=== PATIENT | female | born 2000 | race American Indian/Alaskan Native ===

== ENCOUNTER 2019-03-08 04:29 | Emergency (ER) | payer BC ==
--- NOTE | 2019-03-08 05:06 | XRay Report ---
CHEST 1 VIEW INDICATION / CLINICAL INFORMATION: Chest Pain. COMPARISON: None available. FINDINGS: SUPPORT DEVICES: None. HEART / MEDIASTINUM: No significant abnormality. LUNGS / PLEURA: No significant pulmonary or pleural abnormality. No pneumothorax. ADDITIONAL FINDINGS: No significant additional findings. IMPRESSION: 1. No acute findings. Signer Name: Rony Mejia MD Signed: 03/08/2019 5:01 AM Workstation Name: [id number]
--- NOTE | 2019-03-08 06:06 | Emergency Department Report ---
ED General Adult HPI - General Chief complaint: Chest Pain Stated complaint: CHEST PAIN Source: patient Mode of arrival: Ambulatory Limitations: No Limitations - History of Present Illness Initial comments: Patient is a nulliparous 18-year-old female with a history of asthma who presents to the ED with complaint of acute acute onset persistent intermittent chest tightness with wheezing and shortness of breath for the last 1 week, worse in the last 2 days. Patient states that she does not have any in Albuterol inhaler or nebulizer at home. Patient denies dizziness, chest pain, abdominal pain, nausea, vomiting, sore throat, nasal and sinus congestion, fever, chills, traumatic injury or heavy lifting. Patient also states that she is not on any control. Patient does not smoke or drink alcohol. MD Complaint: CHEST TIGHTNESS; WHEEZING, DYSPNEA -: Sudden, week(s) (1) Location: chest Radiation: non-radiation Severity scale (0 -10): 2 Quality: dull Consistency: intermittent Improves with: none Worsens with: none Associated Symptoms: denies other symptoms, cough, shortness of breath. denies: confusion, chest pain, diaphoresis, fever/chills, headaches, malaise, nausea/vomiting, rash, seizure, syncope, weakness Treatments Prior to Arrival: none - Related Data Home Medications Medication Instructions Recorded Confirmed Last Taken Claritin 10 mg PO DAILY 07/16/14 07/16/14 Unknown Previous Rx's Medication Instructions Recorded Last Taken Type Albuterol Sulfate [Proventil HFA] 1 - 2 puff IH Q4H PRN #2 hfa.aer.ad 07/17/14 Unknown Rx Desloratadine [Clarinex] 5 mg PO DAILY #30 tablet 07/17/14 Unknown Rx Naproxen [Naprosyn] 500 mg PO BID #20 tablet 01/08/16 Unknown Rx ALBUTEROL Inhaler (OR & NICU) 1 puff IH Q6H PRN #1 inh 03/08/19 Unknown Rx [ProAir HFA Inhaler] methylPREDNISolone [Medrol 4MG 4 mg PO DAILY #21 tab.ds.pk 03/08/19 Unknown Rx DOSEPAK (21 tabs)] Allergies Allergy/AdvReac Type Severity Reaction Status Date / Time No Known Allergies Allergy Unverified 07/16/14 22:27 ED Review of Systems ROS: Stated complaint: CHEST PAIN Other details as noted in HPI Constitutional: denies: chills, fever Eyes: denies: eye pain, eye discharge, vision change ENT: denies: ear pain, throat pain, congestion Respiratory: cough, shortness of breath, wheezing Cardiovascular: denies: chest pain, palpitations Endocrine: no symptoms reported Gastrointestinal: denies: abdominal pain, nausea, diarrhea Genitourinary: denies: urgency, dysuria, discharge Musculoskeletal: denies: back pain, joint swelling, arthralgia Skin: denies: rash, lesions Neurological: denies: headache, weakness, paresthesias Psychiatric: denies: anxiety, depression Hematological/Lymphatic: denies: easy bleeding, easy bruising ED Past Medical Hx - Past Medical History Previous Medical History?: No Hx Asthma: No - Surgical History Past Surgical History?: No - Social History Smoking Status: Never Smoker Substance Use Type: None - Medications Home Medications: Home Medications Medication Instructions Recorded Confirmed Last Taken Type Claritin 10 mg PO DAILY 07/16/14 07/16/14 Unknown History Albuterol Sulfate [Proventil HFA] 1 - 2 puff IH Q4H PRN #2 hfa.aer.ad 07/17/14 Unknown Rx Desloratadine [Clarinex] 5 mg PO DAILY #30 tablet 07/17/14 Unknown Rx Naproxen [Naprosyn] 500 mg PO BID #20 tablet 01/08/16 Unknown Rx ALBUTEROL Inhaler (OR & NICU) 1 puff IH Q6H PRN #1 inh 03/08/19 Unknown Rx [ProAir HFA Inhaler] methylPREDNISolone [Medrol 4MG 4 mg PO DAILY #21 tab.ds.pk 03/08/19 Unknown Rx DOSEPAK (21 tabs)] ED Physical Exam - General Limitations: No Limitations General appearance: alert, in no apparent distress - Head Head exam: Present: atraumatic, normocephalic, normal inspection - Eye Eye exam: Present: normal appearance, PERRL, EOMI Pupils: Present: normal accommodation - ENT ENT exam: Present: normal exam, normal orophraynx, mucous membranes moist, TM's normal bilaterally, normal external ear exam - Neck Neck exam: Present: normal inspection, full ROM - Respiratory Respiratory exam: Present: normal lung sounds bilaterally. Absent: respiratory distress, wheezes, rales, rhonchi, stridor, chest wall tenderness, accessory muscle use, decreased breath sounds, prolonged expiratory - Cardiovascular Cardiovascular Exam: Present: regular rate, normal rhythm, normal heart sounds. Absent: systolic murmur, diastolic murmur, rubs, gallop - GI/Abdominal GI/Abdominal exam: Present: soft, normal bowel sounds. Absent: tenderness, guarding, rebound, hyperactive bowel sounds, hypoactive bowel sounds, organomegaly - Extremities Exam Extremities exam: Present: normal inspection, full ROM, normal capillary refill - Back Exam Back exam: Present: normal inspection, full ROM - Neurological Exam Neurological exam: Present: alert, oriented X3, CN II-XII intact, normal gait, reflexes normal - Psychiatric Psychiatric exam: Present: normal affect, normal mood - Skin Skin exam: Present: warm, dry, intact, normal color. Absent: rash ED Course Vital Signs 03/08/19 04:33 Temperature 97.7 F Pulse Rate 95 H Respiratory 12 Rate Blood Pressure 113/80 O2 Sat by Pulse 100 Oximetry ED Medical Decision Making - Radiology Data Radiology results: report reviewed, image reviewed Chest x-ray shows no acute cardiopulmonary abnormalities or pneumonitis. - Medical Decision Making This is a 18-year-old female with a history of asthma and does not use any bronchodilators at home presented to the ED with chest tightness, dry cough, wheezing and shortness of breath for 1 week intermittently. In the ED, patient is alert and oriented 3 and is not in distress. The vital signs are stable with oxygen saturation of 100% in room air. Physical examination is unremarkable with no wheezing or adventitious lung sounds. Chest x-ray shows no acute cardiopulmonary abnormalities or pneumonitis. Patient has no risk factors for cardiac disease or PE. Patient was discharged home on medications including steroid Dosepak and albuterol inhaler and was advised to follow-up with her primary care physician in 5-7 days for reevaluation or return to the ED immediately if symptoms get worse. - Differential Diagnosis asthma; bronchitis; pneumonia; URI; Critical care attestation.: If time is entered above; I have spent that time in minutes in the direct care of this critically ill patient, excluding procedure time. ED Disposition Clinical Impression: Shortness of breath Asthmatic bronchitis Qualifiers: Asthma severity: mild Asthma persistence: intermittent Asthma complication type: uncomplicated Qualified Code(s): J45.20 - Mild intermittent asthma, uncomplicated Disposition: DC-01 TO HOME OR SELFCARE Is pt being admited?: No Does the pt Need Aspirin: No Condition: Stable Instructions: Acute Bronchitis (ED), Asthma (ED) Additional Instructions: Take medications as advised, follow-up with your primary care physician in 5-7 days for reevaluation. Return to the ED immediately if symptoms get worse. Prescriptions: methylPREDNISolone [Medrol 4MG DOSEPAK (21 tabs)] 4 mg PO DAILY #21 tab.ds.pk ALBUTEROL Inhaler (OR & NICU) [ProAir HFA Inhaler] 1 puff IH Q6H PRN #1 inh PRN Reason: Dyspnea Referrals: PRIMARY CARE, [Primary Care Provider] - 3-5 Days Forms: Work/School Release Form(ED) Time of Disposition: 06:09 Print Language: YI
[2019-03-08 06:44] VITALS: BP 101/66
== END 2019-03-08 06:00 | disposition home or self-care (01) ==
LOC: ED 04:29
DX: J45.909 Unspecified asthma, uncomplicated (principal); Z79.899 Other long term (current) drug therapy
CPT/HCPCS: 71045; 93005; 93010; 99283

== ENCOUNTER 2021-08-08 17:52 | Emergency (ER) | payer SELFPAY ==
[2021-08-08] MEDS ORDERED: predniSONE 50 MG TAB PO ONE (20:55)
[2021-08-08] MEDS ORDERED: ACETAMINOPHEN 325 MG TAB PO ONE (20:55)
--- NOTE | 2021-08-08 21:28 | XRay Report ---
CHEST 2 VIEWS INDICATION / CLINICAL INFORMATION: cough. COMPARISON: None available. FINDINGS: SUPPORT DEVICES: None. HEART / MEDIASTINUM: No significant abnormality. LUNGS / PLEURA: No significant pulmonary or pleural abnormality. No pneumothorax. ADDITIONAL FINDINGS: Mild scoliosis IMPRESSION: 1. No acute findings. Signer Name: Jeancarlos Cantrell MD Signed: 08/08/2021 9:23 PM Workstation Name: [id number]
--- NOTE | 2021-08-08 21:39 | Emergency Department Report ---
- General Chief Complaint: Upper Respiratory Infection Stated Complaint: SOB/BODY ACHES Source: patient Mode of arrival: Ambulatory Limitations: No Limitations - History of Present Illness Initial Comments: Patient is a nulliparous 21-year-old -[place] female with no past medical history who presents to the ED with complaint of acute onset persistent nasal and sinus congestion, frontal sinus pressure, sore throat, diffuse body aches and pains and persistent dry cough for the last 3 days, worse in the last 24 hours. Patient states that she has been taking [id number] medications with no relief. Patient denies dizziness, syncope, fever, nausea and vomiting or diarrhea, chills, chest pain and shortness of breath, abdominal pain, dysuria, urinary frequency and urgency or change in vision. MD Complaint: cough, rhinorrhea, nasal congestion, sinus pain, other (Diffuse body aches and pains) -: Sudden, days(s) (3) Severity: moderate Severity scale (0 -10): 6 Quality: aching Consistency: constant Improves With: nothing Worsens With: nothing Context: sick contacts Associated Symptoms: denies other symptoms, rhinorrhea, nasal congestion, sore throat, cough. denies: fever, chills, myalgias, diaphoresis, headache, stiff neck, chest pain, shortness of breath, abdominal pain, nausea, vomiting, diarrhea, dysuria, rash, confusion, right sweats, weight loss, epistaxis, hoarseness, other Treatments Prior to Arrival: "cold medicine" - Related Data Home Medications Medication Instructions Recorded Confirmed Last Taken Claritin 10 mg PO DAILY 07/16/14 07/16/14 Unknown Previous Rx's Medication Instructions Recorded Last Taken Type Albuterol Sulfate [Proventil HFA] 1 - 2 puff IH Q4H PRN #2 hfa.aer.ad 07/17/14 Unknown Rx Desloratadine [Clarinex] 5 mg PO DAILY #30 tablet 07/17/14 Unknown Rx Naproxen [Naprosyn] 500 mg PO BID #20 tablet 01/08/16 Unknown Rx Albuterol Mdi (or & Nicu Only) 1 puff IH Q6H PRN #1 inh 03/08/19 Unknown Rx [ProAir HFA Inhaler] methylPREDNISolone [Medrol 4MG 4 mg PO DAILY #21 tab.ds.pk 03/08/19 Unknown Rx DOSEPAK (21 tabs)] Naproxen 500 mg PO Q12H PRN #24 tablet 11/10/19 Unknown Rx Azithromycin [Zithromax Z-LUX] 250 mg PO DAILY #6 tab 08/08/21 Unknown Rx Benzonatate [Tessalon Perles] 100 mg PO Q8HR #21 cap 08/08/21 Unknown Rx Cetirizine HCl [Zyrtec 10mg tab] 10 mg PO DAILY #30 tab 08/08/21 Unknown Rx Ibuprofen [Motrin] 600 mg PO Q8H PRN #30 tablet 08/08/21 Unknown Rx predniSONE [Deltasone] 40 mg PO QDAY #10 tab 08/08/21 Unknown Rx Allergies Allergy/AdvReac Type Severity Reaction Status Date / Time No Known Allergies Allergy Unverified 07/16/14 22:27 ED Review of Systems ROS: Stated complaint: SOB/BODY ACHES Other details as noted in HPI Constitutional: denies: chills, fever Eyes: denies: eye pain, eye discharge, vision change ENT: throat pain, congestion. denies: ear pain Respiratory: cough, shortness of breath. denies: wheezing Cardiovascular: denies: chest pain, palpitations Endocrine: no symptoms reported Gastrointestinal: denies: abdominal pain, nausea, vomiting, diarrhea Genitourinary: denies: urgency, dysuria, discharge Musculoskeletal: arthralgia, myalgia. denies: back pain, joint swelling Skin: denies: rash, lesions Neurological: denies: headache, weakness, paresthesias Psychiatric: denies: anxiety, depression Hematological/Lymphatic: denies: easy bleeding, easy bruising ED Past Medical Hx - Past Medical History Hx Asthma: No - Social History Smoking Status: Never Smoker Substance Use Type: None - Medications Home Medications: Home Medications Medication Instructions Recorded Confirmed Last Taken Type Claritin 10 mg PO DAILY 07/16/14 07/16/14 Unknown History Albuterol Sulfate [Proventil HFA] 1 - 2 puff IH Q4H PRN #2 hfa.aer.ad 07/17/14 Unknown Rx Desloratadine [Clarinex] 5 mg PO DAILY #30 tablet 07/17/14 Unknown Rx Naproxen [Naprosyn] 500 mg PO BID #20 tablet 01/08/16 Unknown Rx Albuterol Mdi (or & Nicu Only) 1 puff IH Q6H PRN #1 inh 03/08/19 Unknown Rx [ProAir HFA Inhaler] methylPREDNISolone [Medrol 4MG 4 mg PO DAILY #21 tab.ds.pk 03/08/19 Unknown Rx DOSEPAK (21 tabs)] Naproxen 500 mg PO Q12H PRN #24 tablet 11/10/19 Unknown Rx Azithromycin [Zithromax Z-LUX] 250 mg PO DAILY #6 tab 08/08/21 Unknown Rx Benzonatate [Tessalon Perles] 100 mg PO Q8HR #21 cap 08/08/21 Unknown Rx Cetirizine HCl [Zyrtec 10mg tab] 10 mg PO DAILY #30 tab 08/08/21 Unknown Rx Ibuprofen [Motrin] 600 mg PO Q8H PRN #30 tablet 08/08/21 Unknown Rx predniSONE [Deltasone] 40 mg PO QDAY #10 tab 08/08/21 Unknown Rx ED Physical Exam - General Limitations: No Limitations General appearance: alert, in no apparent distress - Head Head exam: Present: atraumatic, normocephalic, normal inspection - Eye Eye exam: Present: normal appearance, PERRL, EOMI Pupils: Present: normal accommodation - ENT ENT exam: Present: mucous membranes moist, TM's normal bilaterally, normal external ear exam, other (Grossly congested nasal passages; mildly erythematous oropharynx) - Neck Neck exam: Present: normal inspection, full ROM, lymphadenopathy (Anterior cervical lymphadenopathy). Absent: tenderness - Respiratory Respiratory exam: Present: normal lung sounds bilaterally. Absent: respiratory distress, wheezes, rales, rhonchi, chest wall tenderness, accessory muscle use, decreased breath sounds, prolonged expiratory - Cardiovascular Cardiovascular Exam: Present: normal rhythm, tachycardia, normal heart sounds. Absent: systolic murmur, diastolic murmur, rubs, gallop - GI/Abdominal GI/Abdominal exam: Present: soft, normal bowel sounds. Absent: tenderness, guarding, rebound, hyperactive bowel sounds, hypoactive bowel sounds, organomegaly, bruit - Extremities Exam Extremities exam: Present: normal inspection, full ROM, normal capillary refill - Back Exam Back exam: Present: normal inspection, full ROM. Absent: tenderness, CVA tenderness (R), CVA tenderness (L), muscle spasm, paraspinal tenderness, vertebral tenderness - Neurological Exam Neurological exam: Present: alert, oriented X3, CN II-XII intact, normal gait, reflexes normal - Psychiatric Psychiatric exam: Present: normal affect, normal mood - Skin Skin exam: Present: warm, dry, intact, normal color. Absent: rash ED Course Vital Signs 08/08/21 18:11 Temperature 99.0 F Pulse Rate 130 H Respiratory 18 Rate Blood Pressure 111/70 O2 Sat by Pulse 99 Oximetry ED Medical Decision Making - Radiology Data Radiology results: report reviewed, image reviewed [facility] [address] [place] [address] XRay Report Signed Patient: ROSIBEL GONZALEZ MR#: [id number] : 2000 Acct:[id number] Age/Sex: 21 / F ADM Date: 08/08/21 Loc: ED Attending Dr: Ordering Physician: PRERNA ESPANA Date of Service: 08/08/21 Procedure(s): XR chest routine 2V Accession Number(s): [id number] cc: PRERNA ESPANA Fluoro Time In Minutes: CHEST 2 VIEWS INDICATION / CLINICAL INFORMATION: cough. COMPARISON: None available. FINDINGS: SUPPORT DEVICES: None. HEART / MEDIASTINUM: No significant abnormality. LUNGS / PLEURA: No significant pulmonary or pleural abnormality. No pneumothorax. ADDITIONAL FINDINGS: Mild scoliosis IMPRESSION: 1. No acute findings. Signer Name: Jeancarlos Vasquez MD Signed: 08/08/2021 9:23 PM Workstation Name: [id number] Transcribed By: CW Dictated By: HARRY VASQUEZ MD Electronically Authenticated By: HARRY VASQUEZ MD Signed Date/Time: 08/08/212122 DD/ 22 TD/TT: - Medical Decision Making This is a nulliparous 21-year-old -[place] female with no past medical history who presents to the ED with complaint of acute onset persistent nasal and sinus congestion, frontal sinus pressure, sore throat, diffuse body aches an d pains and persistent dry cough for the last 3 days, worse in the last 24 hours. Patient states that she has been taking [id number] medications with no relief. In the ED, patient is alert and oriented x3 and is not in any distress. Patient is however tachycardic and afebrile in triage. Patient was treated for pain in the ED and chest x-ray showed no acute cardiopulmonary abnormalities or pneumonitis. On reevaluation, patient felt better, tachycardia resolved and patient will discharge home on medications and advised to follow- up with her primary care physician in 7 to 10 days for reevaluation. Patient advised to return to the ED immediately if symptoms get worse. - Differential Diagnosis URI; pharyngitis; sinusitis; bronchitis; pneumonia Critical care attestation.: If time is entered above; I have spent that time in minutes in the direct care of this critically ill patient, excluding procedure time. ED Disposition Clinical Impression: Acute upper respiratory infection Acute pharyngitis Qualifiers: Pharyngitis/tonsillitis etiology: other specified organisms Qualified Code(s): J02.8 - Acute pharyngitis due to other specified organisms Acute bronchitis Qualifiers: Bronchitis organism: unspecified organism Qualified Code(s): J20.9 - Acute bronchitis, unspecified Disposition: 01 HOME / SELF CARE / HOMELESS Is pt being admited?: No Does the pt Need Aspirin: No Condition: Stable Instructions: Acute Bronchitis (ED), Upper Respiratory Infection, Adult, [id number], Cough, Adult, [id number], Acute Bronchitis, Adult, [id number], Pharyngitis, [id number] Additional Instructions: Chest x-ray showed no acute cardiopulmonary abnormalities or pneumonitis. Therefore take medication as advised, drink plenty of fluids and follow-up with your primary care physician 7 to 10 days for reevaluation. Return to the ED immediately if symptoms get worse. Prescriptions: predniSONE [Deltasone] 40 mg PO QDAY #10 tab Ibuprofen [Motrin] 600 mg PO Q8H PRN #30 tablet PRN Reason: Pain Benzonatate [Tessalon Perles] 100 mg PO Q8HR #21 cap Azithromycin [Zithromax Z-LUX] 250 mg PO DAILY #6 tab Cetirizine HCl [Zyrtec 10mg tab] 10 mg PO DAILY #30 tab Referrals: PRIMARY CARE, [Primary Care Provider] - 3-5 Days Time of Disposition: 21:40 Print Language: SUDANESE
[2021-08-08 22:35] VITALS: BP 102/63
== END 2021-08-08 22:35 | disposition home or self-care (01) ==
LOC: ED 17:52
DX: J06.9 Acute upper respiratory infection, unspecified (principal); J02.9 Acute pharyngitis, unspecified; J20.9 Acute bronchitis, unspecified
CPT/HCPCS: 71046; 99283; J7512